=== PATIENT | female | born 1940 | race Asian ===

== ENCOUNTER 2025-01-27 16:30 | Inpatient (IN) | payer MEDICARE ==
[~2025-01-27] VITALS: Ht 152.4 cm; Wt 56.0 kg
[2025-01-27 18:32] LABS: BASOPHILS % 0.2 % (0.0-1.0); EOSINOPHILS % 0.1 % (0.0-6.0); HEMATOCRIT 31.5 % (34.2-44.1); MEAN CORPUSCULAR HEMOGLOBIN 30.7 pg (28-32); MEAN CORPUSCULAR HGB CONC 34.9 g/dL (31-35); MONOCYTES # (AUTO) 1.3 (0.2-0.8); MONOCYTES % 6.9 % (4.4-11.3); NEUTROPHILS # (AUTO) 16.7 (2.1-6.9); NEUTROPHILS % 86.3 % (38.7-80.0); PLATELET COUNT 190 x10e3/uL (140-360); RED BLOOD COUNT 3.58 x10e6/uL (3.6-5.1); RED CELL DISTRIBUTION WIDTH 13.1 % (11.7-14.4); WHITE BLOOD COUNT 19.38 x10e3/uL (4.8-10.8)
[2025-01-27 18:56] LABS: ALBUMIN 2.5 g/dL (3.5-5.0); ALBUMIN/GLOBULIN RATIO 0.6 (0.8-2.0); ANION GAP 18.9 mmol/L (8-16); BILIRUBIN,TOTAL 2.1 mg/dL (0.2-1.2); CALCIUM 8.8 mg/dL (8.4-10.2); CREATININE, SERUM 0.84 mg/dL (0.57-1.11); POTASSIUM 3.9 mmol/L (3.5-5.1); TOTAL PROTEIN 6.8 g/dL (6.5-8.1)
[2025-01-27 19:11] LABS: BILIRUBIN,URINE SMALL (NEGATIVE); CLARITY,URINE CLOUDY (CLEAR); COLOR,URINE AMBER (YELLOW); GLUCOSE, URINE NEGATIVE (NEGATIVE); KETONES,URINE TRACE (NEGATIVE); LEUKOCYTE ESTERASE ,URINE NEGATIVE (NEGATIVE); NITRITE,URINE NEGATIVE (NEGATIVE); PH,URINE 5.5 (5 - 7); PROTEIN,URINE DIPSTICK 2+ (NEGATIVE); URINE UROBILINOGEN 1 mg/dL (0.2 - 1)
[2025-01-27 19:20] LABS: BACTERIA,URINE MANY /HPF; RBC,URINE 0-5 /HPF (0-5); WBC,URINE (MAN) 0-5 /HPF (0-5)
[2025-01-27] MEDS ORDERED: SODIUM CHLORIDE 0.9% 1000ML 1,000 ML ONE ×2 (19:36→20:20)
[2025-01-27] MEDS: ACETAMINOPHEN 1000 MG/100 ML IV STA ×2 (19:45→20:37)
[2025-01-27] MEDS: SODIUM CHLORIDE 0.9% 1000ML 1,000 ML IV STA (20:24)
[2025-01-27 20:45] VITALS: TEMP 98.5
[2025-01-27] MEDS: DEXTROSE 5%/0.9% SOD CHL 1,000 ML IV SCH (21:33)
[2025-01-27] MEDS: MUPIROCIN 2% OINT 22 GM TUBE TOP SCH (22:51)
[2025-01-27] MEDS: AMIODARONE HCL 150 MG/100 ML BAG IV ONE (22:51)
[2025-01-27 23:00] VITALS: PULSE 115; RESP 20
[2025-01-27 23:16] VITALS: BP 117/66; PULSE 92; RESP 24; TEMP 98.5; O2SAT 98
[2025-01-27 23:30] VITALS: BP 126/63; PULSE 92; RESP 26; TEMP 98.5; O2SAT 98
[2025-01-27] MEDS: AMIODARONE 900MG 900 MG in Premix Bag 1 BAG IV SCH (23:34)
[2025-01-27] MEDS: AMIODARONE 900MG 500 ML IV ONE (23:35)
[2025-01-27 23:45] VITALS: PULSE 114; RESP 22; O2SAT 98
[2025-01-28] VITALS (34 sets, daily range): BP systolic 114–205; BP diastolic 50–100; PULSE 35–128; RESP 16–42; TEMP 98–98.2; O2SAT 97–100
[2025-01-28] MEDS ORDERED: IOPAMIDOL 370 MG/ML 100 ML INFUS..BTL INJ ONE (01:09)
[2025-01-28] MEDS ORDERED: METOPROLOL SUCC25 MG PO (01:30)
[2025-01-28] MEDS ORDERED: GLIPIZIDE5 MG PO (01:30)
[2025-01-28] MEDS: AMIODARONE 900MG 900 MG in Premix Bag 1 BAG IV SCH (05:30)
[2025-01-28 06:44] LABS: BASOPHILS % 0.2 % (0.0-1.0); EOSINOPHILS % 0.1 % (0.0-6.0); HEMATOCRIT 29.8 % (34.2-44.1); HEMOGLOBIN 10.2 g/dL (12.0-16.0); LYMPHOCYTES # (AUTO) 0.8 (1.0-3.2); LYMPHOCYTES % 4.7 % (18.0-39.1); MEAN CORPUSCULAR HEMOGLOBIN 30.2 pg (28-32); MEAN CORPUSCULAR HGB CONC 34.2 g/dL (31-35); MEAN CORPUSCULAR VOLUME 88.2 fL (81-99); MONOCYTES % 6.2 % (4.4-11.3); NEUTROPHILS # (AUTO) 14.6 (2.1-6.9); PLATELET COUNT 221 x10e3/uL (140-360); RED BLOOD COUNT 3.38 x10e6/uL (3.6-5.1); WHITE BLOOD COUNT 16.77 x10e3/uL (4.8-10.8)
[2025-01-28 07:15] LABS: ANION GAP 12.1 mmol/L (8-16); CALCIUM 7.8 mg/dL (8.4-10.2); CREATININE, SERUM 0.77 mg/dL (0.57-1.11)
[2025-01-28 07:20] LABS: POTASSIUM 3.1 mmol/L (3.5-5.1)
[2025-01-28 07:45] LABS: TROPONIN I 0.25 ng/mL (0-0.300)
[2025-01-28 08:54] LABS: BAND NEUTROPHILS % (MANUAL) 1 %; LYMPHOCYTES % (MANUAL) 3 % (19-48); MONOCYTES % (MANUAL) 8 % (3.4-9.0); NEUTROPHILS % (MANUAL) 88 % (40-74)
[2025-01-28 08:55] LABS: PLATELET ESTIMATE ADEQUATE; PLATELET MORPHOLOGY COMMENT NORMAL
[2025-01-28] MEDS ORDERED: DEXTROSE 50% SYRINGE 50 ML IV PRN (09:00)
[2025-01-28] MEDS: POTASSIUM CHLORIDE 20MEQ/100ML 100 ML IV ONE (09:20)
[2025-01-28] MEDS: ACETAMINOPHEN 325 MG TAB PO PRN (09:27)
[2025-01-28 10:05] LABS: PHOSPHORUS 2.3 MG/DL (2.3-4.7)
[2025-01-28] MEDS: INSULIN LISPRO 100 UNIT/1 ML 3ML VIAL SQ SCH (11:27)
[2025-01-28 11:52] LABS: BILIRUBIN,DIRECT 1.3 mg/dL (0.0-0.5); BILIRUBIN,TOTAL 1.8 mg/dL (0.2-1.2); TOTAL PROTEIN 5.6 g/dL (6.5-8.1)
[2025-01-28] MEDS ORDERED: GADOBENATE DIMEGLUMINE 1 ML IV ONE (12:16)
[2025-01-28 15:15] LABS: TROPONIN I 0.225 ng/mL (0-0.300)
[2025-01-28] MEDS: HYDRALAZINE HCL 20 MG/ML VIAL IV PRN (17:32)
[2025-01-28] MEDS: Morphine 2mg Syringe 2 MG/ML SYR IV PRN (18:08)
[2025-01-28] MEDS: Vancomycin IV 1 GM in SODIUM CHLORIDE 0.9% 250ML 250 ML IV ONE (18:43)
[2025-01-29] VITALS (30 sets, daily range): BP systolic 131–212; BP diastolic 51–103; PULSE 41–104; RESP 17–36; TEMP 97.9–99.3; O2SAT 91–100
[2025-01-29] MEDS: ONDANSETRON HCL INJ 2MG/ML 2ML 2 MG/ML VIAL IV PRN (00:48)
[2025-01-29] MEDS: AMIODARONE 900MG 500 ML IV ONE (02:50)
[2025-01-29 06:49] LABS: BASOPHILS # (AUTO) 0.1 (0.0-0.1); BASOPHILS % 0.5 % (0.0-1.0); EOSINOPHILS # (AUTO) 0.1 (0.0-0.4); EOSINOPHILS % 0.3 % (0.0-6.0); HEMATOCRIT 29.2 % (34.2-44.1); HEMOGLOBIN 9.6 g/dL (12.0-16.0); LYMPHOCYTES # (AUTO) 1.3 (1.0-3.2); LYMPHOCYTES % 6.9 % (18.0-39.1); MEAN CORPUSCULAR HEMOGLOBIN 30.7 pg (28-32); MEAN CORPUSCULAR HGB CONC 32.9 g/dL (31-35); MEAN CORPUSCULAR VOLUME 93.3 fL (81-99); MONOCYTES # (AUTO) 1.1 (0.2-0.8); MONOCYTES % 5.9 % (4.4-11.3); NEUTROPHILS # (AUTO) 16.3 (2.1-6.9); NEUTROPHILS % 84.3 % (38.7-80.0); PLATELET COUNT 282 x10e3/uL (140-360); RED BLOOD COUNT 3.13 x10e6/uL (3.6-5.1); RED CELL DISTRIBUTION WIDTH 13.4 % (11.7-14.4); WHITE BLOOD COUNT 19.31 x10e3/uL (4.8-10.8)
[2025-01-29 07:25] LABS: ALBUMIN 1.9 g/dL (3.5-5.0); ALBUMIN/GLOBULIN RATIO 0.6 (0.8-2.0); ANION GAP 12.4 mmol/L (8-16); BILIRUBIN,TOTAL 1.4 mg/dL (0.2-1.2); CALCIUM 7.9 mg/dL (8.4-10.2); CREATININE, SERUM 0.75 mg/dL (0.57-1.11); TOTAL PROTEIN 5.3 g/dL (6.5-8.1)
[2025-01-29 07:26] LABS: POTASSIUM 3.4 mmol/L (3.5-5.1)
[2025-01-29 08:50] LABS: LYMPHOCYTES % (MANUAL) 5 % (19-48); MONOCYTES % (MANUAL) 5 % (3.4-9.0); NEUTROPHILS % (MANUAL) 90 % (40-74); PLATELET ESTIMATE ADEQUATE; PLATELET MORPHOLOGY COMMENT NORMAL
[2025-01-29] MEDS ORDERED: LIDOCAINE HCL 2% LOCAL INJ 5 ML SDV VIAL INJ ONE (13:21)
[2025-01-29] MEDS ORDERED: PROPOFOL IV EMULSION 10 MG/ML 20 ML VIAL ONE (13:21)
[2025-01-29] MEDS ORDERED: ROCURONIUM BROMIDE 1 ML IV ONE (13:22)
[2025-01-29] MEDS ORDERED: FENTANYL CITRATE/PF 100MCG/2 ML INJ ONE (13:22)
[2025-01-29] MEDS ORDERED: SUCCINYLCHOLINE CHLORIDE 20 MG/ML 10ML VIAL ONE (13:22)
[2025-01-29] MEDS ORDERED: ONDANSETRON HCL INJ 2MG/ML 2ML 2 MG/ML VIAL ONE (13:53)
[2025-01-29] MEDS ORDERED: METOCLOPRAMIDE HCL 10 MG/2ML VIAL ONE (13:53)
[2025-01-29] MEDS ORDERED: NEOSTIGMINE 1 MG/ML 10ML VIAL ONE (14:04)
[2025-01-29] MEDS ORDERED: GLYCOPYRROLATE INJ 0.2 MG/ML VIAL ONE (14:04)
[2025-01-29] MEDS: AMIODARONE HCL 200 MG TAB PO SCH (19:43)
[2025-01-29] MEDS: SENNA-S TABLET PO SCH (20:02)
[2025-01-29] MEDS: MAGNESIUM HYDROXIDE 30 ML UDC PO PRN (20:02)
[2025-01-30] VITALS (24 sets, daily range): BP systolic 115–183; BP diastolic 52–80; PULSE 45–111; RESP 13–27; TEMP 97.9–98.2; O2SAT 94–97
[2025-01-30] MEDS: METOPROLOL TARTRATE 50 MG TAB PO SCH (09:59)
[2025-01-30] MEDS: ENOXAPARIN SOD INJ 60 MG/0.6 ML SYR SC SCH (10:00)
[2025-01-30] MEDS: LORAZEPAM INJ 2 MG/ML VIAL IV PRN (20:10)
[2025-01-31] VITALS (23 sets, daily range): BP systolic 135–193; BP diastolic 49–84; PULSE 42–64; RESP 13–24; TEMP 97.3–99; O2SAT 93–97
[2025-01-31 20:22] LABS: BASOPHILS % 0.1 % (0.0-1.0); EOSINOPHILS # (AUTO) 0.1 (0.0-0.4); EOSINOPHILS % 0.8 % (0.0-6.0); HEMATOCRIT 29.7 % (34.2-44.1); LYMPHOCYTES % 11.4 % (18.0-39.1); MEAN CORPUSCULAR HEMOGLOBIN 29.9 pg (28-32); MEAN CORPUSCULAR HGB CONC 33.7 g/dL (31-35); MEAN CORPUSCULAR VOLUME 88.9 fL (81-99); MONOCYTES # (AUTO) 0.6 (0.2-0.8); MONOCYTES % 7.2 % (4.4-11.3); NEUTROPHILS # (AUTO) 6.8 (2.1-6.9); PLATELET COUNT 394 x10e3/uL (140-360); RED BLOOD COUNT 3.34 x10e6/uL (3.6-5.1); RED CELL DISTRIBUTION WIDTH 14.4 % (11.7-14.4); WHITE BLOOD COUNT 8.58 x10e3/uL (4.8-10.8)
[2025-01-31 20:37] LABS: ALBUMIN 1.8 g/dL (3.5-5.0); ALBUMIN/GLOBULIN RATIO 0.5 (0.8-2.0); ANION GAP 12.4 mmol/L (8-16); BILIRUBIN,TOTAL 1.2 mg/dL (0.2-1.2); CALCIUM 7.9 mg/dL (8.4-10.2); CREATININE, SERUM 0.74 mg/dL (0.57-1.11); TOTAL PROTEIN 5.8 g/dL (6.5-8.1)
[2025-01-31 20:42] LABS: POTASSIUM 3.4 mmol/L (3.5-5.1)
[2025-02-01] VITALS (14 sets, daily range): BP systolic 129–181; BP diastolic 47–128; PULSE 49–65; RESP 12–20; TEMP 97.5–98.6; O2SAT 88–98
[2025-02-01 06:33] LABS: BASOPHILS % 0.2 % (0.0-1.0); EOSINOPHILS # (AUTO) 0.1 (0.0-0.4); HEMATOCRIT 33.4 % (34.2-44.1); HEMOGLOBIN 10.9 g/dL (12.0-16.0); LYMPHOCYTES # (AUTO) 0.9 (1.0-3.2); LYMPHOCYTES % 9.5 % (18.0-39.1); MEAN CORPUSCULAR HEMOGLOBIN 29.9 pg (28-32); MEAN CORPUSCULAR HGB CONC 32.6 g/dL (31-35); MEAN CORPUSCULAR VOLUME 91.8 fL (81-99); MONOCYTES # (AUTO) 0.8 (0.2-0.8); MONOCYTES % 8.6 % (4.4-11.3); NEUTROPHILS # (AUTO) 7.5 (2.1-6.9); NEUTROPHILS % 79.4 % (38.7-80.0); PLATELET COUNT 398 x10e3/uL (140-360); RED BLOOD COUNT 3.64 x10e6/uL (3.6-5.1); RED CELL DISTRIBUTION WIDTH 14.4 % (11.7-14.4); WHITE BLOOD COUNT 9.43 x10e3/uL (4.8-10.8)
[2025-02-01 06:59] LABS: ALBUMIN/GLOBULIN RATIO 0.5 (0.8-2.0); ANION GAP 14.3 mmol/L (8-16); BILIRUBIN,TOTAL 1.1 mg/dL (0.2-1.2); CALCIUM 8.1 mg/dL (8.4-10.2); CREATININE, SERUM 0.78 mg/dL (0.57-1.11); TOTAL PROTEIN 6.1 g/dL (6.5-8.1)
[2025-02-01 07:02] LABS: POTASSIUM 3.3 mmol/L (3.5-5.1)
[2025-02-01] MEDS: LOSARTAN POTASSIUM 25 MG TAB PO SCH (13:52)
[2025-02-01] MEDS: APIXABAN 5 MG TABLET PO ONE (16:59)
[2025-02-02] VITALS: BP 159/63; PULSE 58; RESP 17; TEMP 97.8; O2SAT 95
[2025-02-02 04:00] VITALS: BP 165/63; PULSE 57; RESP 18; TEMP 97.6; O2SAT 98
[2025-02-02 06:45] LABS: BASOPHILS % 0.3 % (0.0-1.0); EOSINOPHILS # (AUTO) 0.1 (0.0-0.4); EOSINOPHILS % 1.1 % (0.0-6.0); HEMATOCRIT 29.3 % (34.2-44.1); HEMOGLOBIN 9.9 g/dL (12.0-16.0); LYMPHOCYTES # (AUTO) 0.8 (1.0-3.2); LYMPHOCYTES % 10.9 % (18.0-39.1); MEAN CORPUSCULAR HEMOGLOBIN 30.6 pg (28-32); MEAN CORPUSCULAR HGB CONC 33.8 g/dL (31-35); MEAN CORPUSCULAR VOLUME 90.4 fL (81-99); MONOCYTES # (AUTO) 0.7 (0.2-0.8); MONOCYTES % 9.4 % (4.4-11.3); NEUTROPHILS # (AUTO) 5.7 (2.1-6.9); NEUTROPHILS % 77.1 % (38.7-80.0); PLATELET COUNT 327 x10e3/uL (140-360); RED BLOOD COUNT 3.24 x10e6/uL (3.6-5.1); RED CELL DISTRIBUTION WIDTH 14.2 % (11.7-14.4); WHITE BLOOD COUNT 7.44 x10e3/uL (4.8-10.8)
[2025-02-02 07:33] LABS: ALBUMIN 1.9 g/dL (3.5-5.0); ALBUMIN/GLOBULIN RATIO 0.5 (0.8-2.0); ANION GAP 12.1 mmol/L (8-16); BILIRUBIN,TOTAL 0.9 mg/dL (0.2-1.2); CALCIUM 7.6 mg/dL (8.4-10.2); CREATININE, SERUM 0.71 mg/dL (0.57-1.11); TOTAL PROTEIN 5.5 g/dL (6.5-8.1)
[2025-02-02 07:35] LABS: POTASSIUM 3.1 mmol/L (3.5-5.1)
[2025-02-02 08:59] VITALS: BP 155/57; PULSE 67; RESP 20; TEMP 97.1; O2SAT 98
[2025-02-02] MEDS: APIXABAN 5 MG TABLET PO SCH (09:43)
[2025-02-02 09:52] VITALS: BP 155/57; PULSE 57; RESP 20; TEMP 97.1; O2SAT 98
[2025-02-02] MEDS: POTASSIUM CHLORIDE 10MEQ EA PO ONE (11:01)
[2025-02-02 11:44] VITALS: BP 136/72; PULSE 88; RESP 17; TEMP 97.9; O2SAT 98
== END 2025-02-02 12:54 | disposition home or self-care (01) | DRG 871 ==
LOC: ER 17:13 → ERHOLD 17:28 → ICU 23:14 → MED/SURG3 02-01 17:00
PROVIDERS: ADMIT Internal Medicine; ATTEND Internal Medicine
PROC: 0FC98ZZ Extirpation of Matter from Common Bile Duct, Via Natural or Artificial Opening Endoscopic (ICD-10-PCS; 2025-01-29)
PROC: 0F798DZ Dilation of Common Bile Duct with Intraluminal Device, Via Natural or Artificial Opening Endoscopic (ICD-10-PCS; principal; 2025-01-29 13:40)
PROC: 05HY33Z Insertion of Infusion Device into Upper Vein, Percutaneous Approach (ICD-10-PCS; 2025-01-31)
DX: A41.9 Sepsis, unspecified organism (principal); K65.0 Generalized (acute) peritonitis; K83.1 Obstruction of bile duct; K92.1 Melena; N39.0 Urinary tract infection, site not specified; K31.6 Fistula of stomach and duodenum; K83.09 Other cholangitis; K83.3 Fistula of bile duct; N17.9 Acute kidney failure, unspecified; C24.0 Malignant neoplasm of extrahepatic bile duct; C78.7 Secondary malignant neoplasm of liver and intrahepatic bile duct; R65.20 Severe sepsis without septic shock; D64.9 Anemia, unspecified; I48.0 Paroxysmal atrial fibrillation; K83.8 Other specified diseases of biliary tract; E11.9 Type 2 diabetes mellitus without complications; I10 Essential (primary) hypertension; G47.00 Insomnia, unspecified; K76.89 Other specified diseases of liver; E87.8 Other disorders of electrolyte and fluid balance, not elsewhere classified; N28.1 Cyst of kidney, acquired; Z90.49 Acquired absence of other specified parts of digestive tract; Z79.84 Long term (current) use of oral hypoglycemic drugs
CPT/HCPCS: 36415; 36569; 43260; 71045; 74177; 74183; 74328; 80048; 80053; 80076; 81001; 82550; 82948; 83036; 83690; 83735; 84100; 84484; 85025; 86850; 86900; 93005; 93306; 94799; 99252; 99284; J0330; J0360; J0696; J1650; J2003; J2060; J2270; J2405; J2470; J2543; J2710; J2765; J3480; J7030; J7042; J7050; Q9967